=== PATIENT | male | born 1990 | race Caucasian/White ===

== ENCOUNTER → 2017-01-28 21:45 | Emergency (ER) | payer BC ==
[~2017-01-28 21:45] MED LIST: DOXYcycline CAP(*) 100 MG PO ONE
--- NOTE | 2017-01-28 22:30 | ED ---
Bite Injury/Animal - HPI Summary HPI Summary: 26M presents with tick bite on left upper arm. He does not know how long he has had the tick on for. He removed it 1 hour ago. He removed it with tweezers. He cleaned area afterwards. - History of Current Complaint Chief Complaint: EDRashSkinAbscess Stated Complaint: TICK ON ARM Time Seen by Provider: 01/28/17 22:18 Pain Intensity: 0 - Allergies/Home Medications Allergies/Adverse Reactions: Allergies Allergy/AdvReac Type Severity Reaction Status Date / Time No Known Allergies Allergy Verified 01/06/15 14:02 PMH/Surg Hx/FS Hx/Imm Hx Endocrine/Hematology History: Denies: Hx Anticoagulant Therapy Sensory History: Reports: Hx Contacts or Glasses Opthamlomology History: Reports: Hx Contacts or Glasses Psychiatric History: Reports: Hx Anxiety Infectious Disease History: Denies: Traveled Outside the in Last 30 Days - Social History Alcohol Use: Weekly Substance Use Type: Reports: None Smoking Status (MU): Heavy Every Day Tobacco Smoker Review of Systems Negative: Fever Negative: Chest Pain Negative: Shortness Of Breath Positive: Other - tick bite left upper arm All Other Systems Reviewed And Are Negative: Yes Physical Exam Triage Information Reviewed: Yes Vital Signs On Initial Exam: Initial Vitals Temp Pulse Resp BP Pulse Ox 98.5 F 91 20 150/78 99 01/28/17 21:48 01/28/17 21:48 01/28/17 21:48 01/28/17 21:48 01/28/17 21:48 Vital Signs Reviewed: Yes Appearance: Positive: Well-Appearing Skin: Positive: Warm, Dry, Other - lesion present on left upper arm Head/Face: Positive: Normal Head/Face Inspection Eyes: Positive: Normal, Conjunctiva Clear Respiratory/Lung Sounds: Positive: Clear to Auscultation, Breath Sounds Present Cardiovascular: Positive: Normal, RRR Diagnostics - Vital Signs Vital Signs Temp Pulse Resp BP Pulse Ox 01/28/17 21:48 98.5 F 91 20 150/78 99 - Laboratory Lab Statement: Any lab studies that have been ordered have been reviewed, and results considered in the medical decision making process. Bite Injury Course/Dx - Course Course Of Treatment: 26M presents with left upper arm tick that has been removed by tweezers prior to arrival. does not know how long has had tick on. would like antibiotics. no contraindications for doxcycline so treated with one time dose. patient understands and agrees with plan - Diagnoses Differential Diagnosis/HQI/PQRI: Positive: Puncture, Other - tick, lyme disease Provider Diagnosis: Tick bite Discharge - Discharge Plan Condition: Good Disposition: HOME Patient Education Materials: Tick Bite (ED) Referrals: Kvng Burns MD [Primary Care Provider] - Additional Instructions: You have been prophylactically treated for Lyme disease Return to ED if develop any rash or signs of infection
[2017-01-28 22:39] VITALS: BP 122/74
== END | disposition home or self-care (01) ==
LOC: ED 21:45
DX: S40.862A Insect bite (nonvenomous) of left upper arm, initial encounter (principal); W57.XXXA Bitten or stung by nonvenomous insect and other nonvenomous arthropods, initial encounter; Y93.9 Activity, unspecified; Y92.9 Unspecified place or not applicable; Y99.9 Unspecified external cause status; F17.210 Nicotine dependence, cigarettes, uncomplicated
CPT/HCPCS: 99281; A9270-GY

== ENCOUNTER 2018-09-23 16:36 | Emergency (ER) | payer SELFPAY ==
[2018-09-23] MEDS ORDERED: Lidocaine 1%* 5 ML VIAL INJ ONE (16:47)
[2018-09-23] MEDS ORDERED: Tetan/Diph/Pertus SYR(Tdap)* 0.5 ML SYR(BOOSTRIX) use SYR IM ONE (16:47)
[2018-09-23 16:50] VITALS: BP 153/75
--- NOTE | 2018-09-23 16:50 | UC ---
Skin Complaint HPI - HPI Summary HPI Summary: 28-year-old male comes to clinic today with a chief complaint of a laceration to his left middle finger. This occurred just prior to arrival at work. Cut it with a hand box coverer. Stopped bleeding with direct pressure. No loss of range of motion no sensation deficit. - History of Current Complaint Time Seen by Provider: 09/23/18 16:44 Stated Complaint: FINGER LACERATION - Allergy/Home Medications Allergies/Adverse Reactions: Allergies Allergy/AdvReac Type Severity Reaction Status Date / Time No Known Allergies Allergy Verified 09/23/18 16:48 PMH/Surg Hx/FS Hx/Imm Hx Previously Healthy: Yes Other History Of: Negative For: Anticoagulant Therapy - Surgical History Surgical History: None - Family History Known Family History: Positive: Non-Contributory - Social History Alcohol Use: Weekly Substance Use Type: None Smoking Status (MU): Heavy Every Day Tobacco Smoker - Immunization History Most Recent Influenza Vaccination: 2013 Most Recent Tetanus Shot: 2012 Most Recent Pneumonia Vaccination: 2013 Review of Systems All Other Systems Reviewed And Are Negative: Yes Constitutional: Positive: Negative Skin: Positive: Other - SEE HPI Eyes: Positive: Negative ENT: Positive: Negative Respiratory: Positive: Negative Cardiovascular: Positive: Negative Gastrointestinal: Positive: Negative Motor: Positive: Negative Neurovascular: Positive: Negative Musculoskeletal: Positive: Negative Neurological: Positive: Negative Psychological: Positive: Negative Is Patient Immunocompromised?: No Physical Exam Triage Information Reviewed: Yes Appearance: Well-Appearing, No Pain Distress, Ill-Appearing Vital Signs Reviewed: Yes Eye Exam: Normal Eyes: Positive: Conjunctiva Clear Neck exam: Normal Neck: Positive: Supple Respiratory: Positive: No respiratory distress Musculoskeletal Exam: Normal Musculoskeletal: Positive: Strength Intact, ROM Intact Neurological Exam: Normal Neurological: Positive: Alert, Muscle Tone Normal Psychological Exam: Normal Psychological: Positive: Age Appropriate Behavior Skin: Positive: Other - LEFT MIDDLE FINGER SC LACERATION ON DORSUM. FLAP, ALSO PART OF THE LACERATION IS THROUGH THE MID/DISTAL NAIL. 1.5CM LENGTH. Laceration Repair - Laceration Repair 1 Description: Irregular Laceration Size After Repair: Length (cm) - 1.5CM Modified For Repair: No Type Injection: Local Anesthesia Used: 1.0% Lido Cleansing Completed Via Routine Prep: Yes Closure Material: Skin Adhesive, Sutures - 2 SUTURES ADJACENT TO THE NAIL. SKIN ADHESIVE ON THE NAIL. Closure Method: Single Layer Suture Of: Skin Suture Type: Prolene - 5-0 Course/Dx - Diagnoses Provider Diagnosis: Laceration of left middle finger Discharge - Sign-Out/Discharge Documenting (check all that apply): Patient Departure All imaging exams completed and their final reports reviewed: No Studies - Discharge Plan Condition: Stable Disposition: HOME Prescriptions: Cephalexin CAP* [Keflex CAP*] 500 mg PO TID #21 cap Patient Education Materials: Finger Laceration (ED), Care For Your Stitches (ED ), Skin Adhesive Care (ED) Referrals: Kvng Burns MD [Primary Care Provider] - Additional Instructions: FOLLOW UP WITH YOUR DOCTOR. SUTURES OUT IN 8-10 DAYS. YOU HAD YOUR TDAP (TETANUS/DIPTHERIA) IMMUNIZATION TODAY. GET RECHECKED FOR ANY WORSENING OF YOUR CONDITION; PAIN, SIGN OF INFECTION OR QUESTIONS OR CONCERNS. - Billing Disposition and Condition Condition: STABLE Disposition: Home
== END 2018-09-23 17:30 | disposition home or self-care (01) ==
LOC: UCEAST 16:36
DX: S61.213A Laceration without foreign body of left middle finger without damage to nail, initial encounter (principal); F17.200 Nicotine dependence, unspecified, uncomplicated; W45.8XXA Other foreign body or object entering through skin, initial encounter; Y92.9 Unspecified place or not applicable
CPT/HCPCS: 12001; 90471; 90715; 99212; G0463

== ENCOUNTER 2019-01-04 10:26 | Emergency (ER) | payer SELFPAY ==
--- NOTE | 2019-01-04 11:42 | UC ---
Shoulder Pain HPI - HPI Summary HPI Summary: 28 yo male with left scapular pain x 1 1/2 mos pain free at rest pain starts with movement of left arm and ramps up with continued use occasionally radiates momentarily to left elbow no decreased ROM has been taking ibuprofen symptoms are causing him some anxiety because they have persisted so long - History of Current Complaint Chief Complaint: UCUpperExtremity Stated Complaint: SHARP UPPER SHOULDER PAIN Time Seen by Provider: 01/04/19 11:15 Hx Obtained From: Patient Onset/Duration: Gradual Onset, Lasting Weeks Timing: Intermittent Episode Lasting - hours Severity Initially: Mild Severity Currently: Mild Pain Intensity: 3 - can get worse Pain Scale Used: 0-10 Numeric Character: Aching Aggravating Factor(s): Movement, Other - feels like "something is pushing up" on his left scapula Alleviating Factor(s): Rest, OTC Meds Related History: Dominant Hand Right Torso: 1 - tender along scapular spine,. no winging - Allergies/Home Medications Allergies/Adverse Reactions: Allergies Allergy/AdvReac Type Severity Reaction Status Date / Time No Known Allergies Allergy Verified 01/04/19 11:14 Home Medications: Home Medications Ibuprofen 800 mg PO DAILY WITH MEAL 01/04/19 [History Confirmed 01/04/19] NK [No Home Medications Reported] 01/04/19 [History Confirmed 01/04/19] PMH/Surg Hx/FS Hx/Imm Hx Previously Healthy: Yes - some chronic back pain Other History Of: Negative For: Anticoagulant Therapy - Surgical History Surgical History: Yes Surgery Procedure, Year, and Place: appendix 2015 - Family History Known Family History: Positive: Hypertension, Non-Contributory - Social History Alcohol Use: Weekly Substance Use Type: None Smoking Status (MU): Heavy Every Day Tobacco Smoker Cessation Counseling: Patient Advised to Stop - in process of trying to stop - Immunization History Most Recent Influenza Vaccination: 2013 Most Recent Tetanus Shot: 2012 Most Recent Pneumonia Vaccination: 2013 Review of Systems All Other Systems Reviewed And Are Negative: Yes Constitutional: Positive: Negative Skin: Positive: Negative Eyes: Positive: Negative ENT: Positive: Negative Respiratory: Positive: Negative Cardiovascular: Positive: Negative Gastrointestinal: Positive: Negative Genitourinary: Positive: Negative Motor: Positive: Negative Neurovascular: Positive: Negative Musculoskeletal: Positive: Negative, Myalgia - left scapular region Neurological: Positive: Negative Psychological: Positive: Anxious Physical Exam Triage Information Reviewed: Yes Appearance: Well-Appearing, No Pain Distress, Well-Nourished Vital Signs: Initial Vital Signs Temp 97.6 F 01/04/19 11:08 Pulse 80 01/04/19 11:08 Resp 18 01/04/19 11:08 BP 169/109 01/04/19 11:08 Pulse Ox 100 01/04/19 11:08 Vital Signs Reviewed: Yes Eyes: Positive: Conjunctiva Clear ENT: Negative: Nasal congestion, Nasal drainage, Trismus, Muffled voice, Hoarse voice Neck: Positive: Supple, Nontender, No Lymphadenopathy Respiratory: Positive: Lungs clear, Normal breath sounds, No respiratory distress, No accessory muscle use Cardiovascular: Positive: RRR, No Murmur Musculoskeletal: Positive: ROM Intact - rigfht shoulder, No Edema Neurological: Positive: Alert Psychological Exam: Normal Skin Exam: Normal Diagnostics - Radiology No standard instances Radiology Interpretation Completed By: Radiologist Summary of Radiographic Findings: left scapula- neg Shoulder Course/Dx - Course Course Of Treatment: Left subscapular bursitis - Differential Dx/Diagnosis Provider Diagnosis: Subscapular bursitis, Elevated BP without diagnosis of hypertension Discharge - Sign-Out/Discharge Documenting (check all that apply): Patient Departure All imaging exams completed and their final reports reviewed: Yes - Discharge Plan Condition: Stable Disposition: HOME Patient Education Materials: Shoulder Bursitis (ED) Referrals: Kvng Burns MD [Primary Care Provider] - 2 Weeks Additional Instructions: continue ibu heat massage - Billing Disposition and Condition Condition: STABLE Disposition: Home
[2019-01-04 12:25] VITALS: BP 130/82
== END 2019-01-04 12:45 | disposition home or self-care (01) ==
LOC: UCEAST 10:26
DX: M75.52 Bursitis of left shoulder (principal); F17.210 Nicotine dependence, cigarettes, uncomplicated
CPT/HCPCS: 99211; G0463